=== PATIENT | female | born 1955 | race Two or more races ===

== ENCOUNTER → 2017-04-12 13:59 | Outpatient (CLI) | payer OTHER ==
[~2017-04-12] VITALS: Ht 152.4 cm; Wt 62.6 kg
[~2017-04-12 13:59] MED LIST: DEPO-MEDROL40 MG/ML IM; GILTUSS TR TAB1 EACH PO; KETO10TA2 PO; LASIX20 MG; LASIX20 MG PO; METHOCARBAMOL500 MG; METHOCARBAMOL500 MG PO; NEURONTIN 100 MG; NEURONTIN300 MG PO; NORVASC2.5 MG PO; NORVASC5 MG PO; ORPH100T PO; PREMPRO 0.625-1 EAC1; PREMPRO 0.625/21 TAB; PREMPRO 0.625/21 TAB PO; PROTONIX40 M1; SKELAXIN800 MG PO; TESSALON PERLE100 MG PO; VASOTEC10 MG; VASOTEC10 MG PO; VOLTAREN 50 MG; ZANTAC150 M3 PO
== END | disposition home or self-care (01) ==
LOC: PPHC 13:59
DX: I10 Essential (primary) hypertension (principal); Z76.0 Encounter for issue of repeat prescription

== ENCOUNTER 2017-04-14 08:13 | Outpatient (CLI) | payer OTHER ==
[2017-05-05] MEDS ORDERED: MELOXICAM15 MG PO (09:20)
[2017-05-05] MEDS ORDERED: ROBAXIN500 MG PO (09:20)
[2017-05-05] MEDS ORDERED: DEPO-MEDRO40 MG/1 ML IJ (09:21)
== END 2017-04-14 16:43 | disposition home or self-care (01) ==
LOC: LAB 08:13
DX: I73.9 Peripheral vascular disease, unspecified (principal)

== ENCOUNTER 2017-04-14 09:29 | Outpatient (CLI) | payer OTHER | END 2017-04-14 15:00 | disposition home or self-care (01) | LOC: RAD 09:29 | DX: R31.9 Hematuria, unspecified (principal) ==

== ENCOUNTER 2017-04-21 08:50 | Outpatient (CLI) | payer OTHER | END 2017-04-21 08:57 | disposition home or self-care (01) | LOC: SONOGRAMA 08:50 | DX: D30.01 Benign neoplasm of right kidney (principal) ==

== ENCOUNTER → 2017-05-05 | Outpatient (CLI) | payer OTHER ==
[~2017-05-05] VITALS: Ht 152.4 cm; Wt 63.5 kg
[~2017-05-05] MED LIST changes: +DEPO-MEDRO40 MG/1 ML IJ; +MELOXICAM15 MG PO; +ROBAXIN500 MG PO
== END | disposition home or self-care (01) ==
LOC: PPHC 09:49
DX: Z00.8 Encounter for other general examination (principal)

== ENCOUNTER 2017-06-01 13:03 | Outpatient (CLI) | payer OTHER | END 2017-06-01 13:08 | disposition home or self-care (01) | LOC: NUCLEAR 13:03 | DX: Z13.820 Encounter for screening for osteoporosis (principal) ==

== ENCOUNTER 2017-06-21 13:57 | Outpatient (CLI) | payer OTHER | END 2017-06-21 14:05 | disposition home or self-care (01) | LOC: LAB 13:57 | DX: I73.9 Peripheral vascular disease, unspecified (principal) ==

== ENCOUNTER → 2017-06-25 | Outpatient (CLI) | payer OTHER ==
[~2017-06-25] VITALS: Ht 152.4 cm; Wt 67.1 kg
[~2017-06-25] MED LIST changes: +VOLTAREN100 GM TOP
== END | disposition home or self-care (01) ==
LOC: PPHC 10:51
DX: Z76.0 Encounter for issue of repeat prescription (principal); Z00.00 Encounter for general adult medical examination without abnormal findings

== ENCOUNTER 2017-07-07 10:01 | Outpatient (CLI) | payer OTHER | END 2017-07-07 12:46 | disposition home or self-care (01) | LOC: LAB 10:01 | DX: I10 Essential (primary) hypertension (principal); E78.5 Hyperlipidemia, unspecified; R51 Headache ==

== ENCOUNTER → 2017-07-22 | Outpatient (CLI) | payer OTHER | END | disposition home or self-care (01) | LOC: PPHC 08:19 | DX: Z01.89 Encounter for other specified special examinations (principal); R51 Headache ==

== ENCOUNTER 2017-09-17 10:02 | Outpatient (CLI) | payer OTHER ==
[~2017-09-17] VITALS: Ht 152.4 cm; Wt 63.5 kg
== END 2017-09-17 10:20 | disposition home or self-care (01) ==
LOC: OFIC 805 10:02
DX: H93.11 Tinnitus, right ear (principal); M26.69 Other specified disorders of temporomandibular joint

== ENCOUNTER 2017-10-18 11:13 | Emergency (ER) | payer OTHER ==
[~2017-10-18] VITALS: Ht 154.9 cm; Wt 63.5 kg
[2017-10-18] MEDS ORDERED: NORVASC5 MG (11:50)
[2017-10-18] MEDS ORDERED: CATAFLAN (11:50)
[2017-10-18] MEDS ORDERED: ROBAXIN500 MG (11:50)
[2017-10-18] MEDS ORDERED: NEURONTIN300 MG (11:51)
[2017-10-18] MEDS ORDERED: PROTONIX20 MG (11:51)
[2017-10-18] MEDS ORDERED: VOLTAREN100 GM (11:51)
[2017-10-18] MEDS ORDERED: VASOTEC10 MG (11:51)
== END 2017-10-18 16:07 | disposition home or self-care (01) ==
LOC: ER 11:13
DX: S39.012A Strain of muscle, fascia and tendon of lower back, initial encounter (principal); X50.0XXA Overexertion from strenuous movement or load, initial encounter; Y93.89 Activity, other specified; Y92.89 Other specified places as the place of occurrence of the external cause; Y99.8 Other external cause status

== ENCOUNTER 2017-10-22 11:57 | Outpatient (CLI) | payer OTHER ==
[~2017-10-22 11:57] MED LIST changes: +CATAFLAN; +NEURONTIN300 MG; +NORVASC5 MG; +PROTONIX20 MG; +ROBAXIN500 MG; +VOLTAREN100 GM
== END 2017-10-22 12:19 | disposition home or self-care (01) ==
LOC: MAMO-SONO 11:57
DX: Z12.31 Encounter for screening mammogram for malignant neoplasm of breast (principal)

== ENCOUNTER 2018-01-25 09:28 | Emergency (ER) | payer OTHER ==
[~2018-01-25] VITALS: Ht 154.9 cm; Wt 63.5 kg
[2018-01-25] MEDS ORDERED: OSEL75CA PO (11:09)
[2018-01-25] MEDS ORDERED: TUSSI PRES-B L120 M1 PO (11:09)
== END 2018-01-25 11:20 | disposition home or self-care (01) ==
LOC: ER 09:28
DX: B34.9 Viral infection, unspecified (principal)

== ENCOUNTER 2018-03-05 10:06 | Outpatient (CLI) | payer OTHER ==
[~2018-03-05 10:06] MED LIST changes: +OSEL75CA PO; +TUSSI PRES-B L120 M1 PO
== END 2018-03-05 10:11 | disposition home or self-care (01) ==
LOC: LAB 10:06
DX: I10 Essential (primary) hypertension (principal); E78.2 Mixed hyperlipidemia; Z12.11 Encounter for screening for malignant neoplasm of colon; Z13.1 Encounter for screening for diabetes mellitus

== ENCOUNTER 2018-07-08 08:47 | Outpatient (CLI) | payer OTHER | END 2018-07-08 10:19 | disposition home or self-care (01) | LOC: LAB 08:47 | DX: E78.2 Mixed hyperlipidemia (principal); N39.0 Urinary tract infection, site not specified; B96.89 Other specified bacterial agents as the cause of diseases classified elsewhere ==

== ENCOUNTER 2018-11-09 10:49 | Outpatient (CLI) | payer OTHER | END 2018-11-09 11:12 | disposition home or self-care (01) | LOC: MAMO-SONO 10:49 | DX: N64.4 Mastodynia (principal) ==

== ENCOUNTER → 2018-12-16 10:24 | Outpatient (CLI) | payer OTHER | END | disposition home or self-care (01) | LOC: LAB 10:24 | DX: N39.0 Urinary tract infection, site not specified (principal) ==

== ENCOUNTER 2019-03-13 09:39 | Outpatient (CLI) | payer OTHER | END 2019-03-13 09:54 | disposition home or self-care (01) | LOC: LAB 09:39 | DX: E78.49 Other hyperlipidemia (principal); E55.9 Vitamin D deficiency, unspecified; Z00.00 Encounter for general adult medical examination without abnormal findings; R42 Dizziness and giddiness; I10 Essential (primary) hypertension ==

== ENCOUNTER 2019-11-07 10:32 | Outpatient (CLI) | payer OTHER | END 2019-11-07 10:38 | disposition home or self-care (01) | LOC: LAB 10:32 | PROVIDERS: ATTEND General Practice | DX: E11.9 Type 2 diabetes mellitus without complications (principal); E78.49 Other hyperlipidemia; Z00.8 Encounter for other general examination; I10 Essential (primary) hypertension ==

== ENCOUNTER 2019-11-07 11:30 | Outpatient (CLI) | payer OTHER | END 2019-11-07 11:37 | disposition home or self-care (01) | LOC: RAD 11:30 | PROVIDERS: ATTEND General Practice | DX: Z12.31 Encounter for screening mammogram for malignant neoplasm of breast (principal); Z12.39 Encounter for other screening for malignant neoplasm of breast; M54.5 Low back pain ==

== ENCOUNTER 2019-11-14 15:33 | Outpatient (CLI) | payer OTHER | END 2019-11-14 15:38 | disposition home or self-care (01) | LOC: MAMO-SONO 15:33 | PROVIDERS: ATTEND General Practice | DX: Z12.31 Encounter for screening mammogram for malignant neoplasm of breast (principal); Z12.39 Encounter for other screening for malignant neoplasm of breast ==

== ENCOUNTER 2020-01-12 12:56 | Outpatient (CLI) | payer OTHER | END 2020-01-12 13:04 | disposition home or self-care (01) | LOC: SONOGRAMA 12:56 | PROVIDERS: ATTEND Surgery | DX: N60.11 Diffuse cystic mastopathy of right breast (principal); N60.12 Diffuse cystic mastopathy of left breast ==

== ENCOUNTER → 2020-03-18 09:32 | Outpatient (CLI) | payer OTHER | END | disposition home or self-care (01) | LOC: LAB 09:32 | DX: E11.9 Type 2 diabetes mellitus without complications (principal); E78.49 Other hyperlipidemia ==